=== PATIENT | female | born 1985 | race Caucasian/White ===

== ENCOUNTER 2017-01-16 18:58 | Outpatient (CLI) | payer BC ==
[2017-01-16 19:34] VITALS: BP 136/63; PULSE 86; RESP 17; TEMP 96.7
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
== END 2017-01-16 21:10 | disposition home or self-care (01) ==
LOC: FBPOP 18:58
PROVIDERS: ATTEND Obstetrics & Gynecology
DX: O9A.212 Injury, poisoning and certain other consequences of external causes complicating pregnancy, second trimester (principal); T14.90 Injury, unspecified; Z3A.27 27 weeks gestation of pregnancy
CPT/HCPCS: 76805; 99213

== ENCOUNTER 2017-01-16 21:17 | Emergency (ER) | payer BC, OTHER ==
[2017-01-16 21:27] VITALS: TEMP 97.8
[2017-01-16 21:35] VITALS: RESP 16
[2017-01-16] MEDS ORDERED: ACETAMINOPHEN IV (For NPO) 1,000 MG in EMPTY BAG 1 BAG IVPB STA (22:11)
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
[2017-01-16 23:15] VITALS: BP 107/54; PULSE 70
== END 2017-01-16 23:21 | disposition home or self-care (01) ==
LOC: EC 21:17
DX: O9A.213 Injury, poisoning and certain other consequences of external causes complicating pregnancy, third trimester (principal); S83.91XA Sprain of unspecified site of right knee, initial encounter; Z88.1 Allergy status to other antibiotic agents; Z91.018 Allergy to other foods; Z88.8 Allergy status to other drugs, medicaments and biological substances; Z3A.29 29 weeks gestation of pregnancy; Z79.899 Other long term (current) drug therapy; V43.52XA Car driver injured in collision with other type car in traffic accident, initial encounter; Y92.410 Unspecified street and highway as the place of occurrence of the external cause
CPT/HCPCS: 99284; 96365; 73502; 73562; J0131; 76805; 99213